=== PATIENT | female | born 1950 | race Two or more races ===

== ENCOUNTER 2021-07-16 06:05 | Day surgery (SDC) | payer OTHER ==
[~2021-07-16 06:05] MED LIST: ATACAND HCT 321 EAC1 PO; ECOTRIN81 MG PO; JANUVIA50 MG PO; NORVASC5 MG PO; SYNTHROID50 MCG PO; TOPROL XL50 M1 PO
== END 2021-07-16 21:30 | disposition home or self-care (01) ==
LOC: CIR.AMB 06:05
PROVIDERS: ATTEND Surgery
DX: C50.211 Malignant neoplasm of upper-inner quadrant of right female breast (principal); R59.0 Localized enlarged lymph nodes; Z20.822 Contact with and (suspected) exposure to COVID-19; Z91.040 Latex allergy status; I10 Essential (primary) hypertension; J45.909 Unspecified asthma, uncomplicated; E03.9 Hypothyroidism, unspecified; M19.90 Unspecified osteoarthritis, unspecified site; E66.9 Obesity, unspecified
CPT/HCPCS: 19281; 19301; 38525; 38900; A9541; C1889